=== PATIENT | female | born 1945 | race Caucasian/White ===

== ENCOUNTER 2017-10-12 11:47 | Emergency (ER) | payer MEDICARE, BC ==
--- NOTE | 2017-10-12 13:15 | XR ---
PA chest x-ray with left RIBS HISTORY: Trauma and pain Frontal view of the chest and 2 views of the left ribs submitted. No comparisons There is no pneumothorax or pleural effusion. No evident displaced rib fracture. Cardiomediastinal si lhouette, pulmonary vascularity and bubba within normal limits. The lungs are well aerated. There is e ventration of the right hemidiaphragm. Decreased bone mineralization may limit the exam. IMPRESSION: No acute abnormality. Bone scan could be performed for increased sensitivity to assess fo r occult fracture as indicated.
--- NOTE | 2017-10-12 13:24 | ED ---
General Adult HPI - General Chief complaint: Fall Stated complaint: Fall Time Seen by Provider: 10/12/17 12:43 Source: patient, RN notes reviewed Mode of arrival: ambulatory Limitations: no limitations - History of Present Illness Initial comments: 71-year-old female presents to the emergency department with a chief complaint of left-sided rib pain. Patient gives the house she slipped on ice habits she hit the left side of her ribs on the ground. She states she is obtaining left- sided ribs. She said big deep breaths she will sometimes get pain there as well. She states there is no shortness of breath. No abdominal pain. No nausea vomiting. She denied her head with the fall. There is no lightheadedness or dizziness prior to the fall. They were concerned due to the continued pain in the ribs so she thought that she should be seen.Patient denies any recent fever, chills, shortness of breath, chest pain, back pain, abdominal pain, nausea vomiting, numbness or tingling, dysuria or hematuria, constipation or diarrhea, headaches or visual changes, or any other current symptoms. - Related Data Home Medications Medication Instructions Recorded Confirmed Aspirin 81 mg PO DAILY 10/12/17 10/12/17 Atorvastatin [Lipitor] 80 mg PO HS 10/12/17 10/12/17 Levothyroxine Sodium [Synthroid] 100 mcg PO DAILY 10/12/17 10/12/17 Lisinopril [Zestril] 5 mg PO HS 10/12/17 10/12/17 Allergies Allergy/AdvReac Type Severity Reaction Status Date / Time No Known Allergies Allergy Verified 10/12/17 12:31 Review of Systems ROS Statement: Those systems with pertinent positive or pertinent negative responses have been documented in the HPI. ROS Other: All systems not noted in ROS Statement are negative. Past Medical History Past Medical History: Hyperlipidemia, Hypertension, Thyroid Disorder History of Any Multi-Drug Resistant Organisms: None Reported Past Surgical History: Hysterectomy Past Psychological History: No Psychological Hx Reported Smoking Status: Never smoker Past Alcohol Use History: Occasional Past Drug Use History: None Reported General Exam Limitations: no limitations General appearance: alert, in no apparent distress Eye exam: Present: normal appearance, PERRL, EOMI. Absent: scleral icterus, conjunctival injection, periorbital swelling ENT exam: Present: normal exam, mucous membranes moist Neck exam: Present: normal inspection. Absent: tenderness, meningismus, lymphadenopathy Respiratory exam: Present: normal lung sounds bilaterally, chest wall tenderness (Left lateral along the lower rib cage). Absent: respiratory distress, wheezes, rales, rhonchi, stridor Cardiovascular Exam: Present: regular rate, normal rhythm, normal heart sounds. Absent: systolic murmur, diastolic murmur, rubs, gallop, clicks GI/Abdominal exam: Present: soft, normal bowel sounds. Absent: distended, tenderness, guarding, rebound, rigid Back exam: Present: normal inspection Neurological exam: Present: alert, oriented X3 Psychiatric exam: Present: normal affect, normal mood Skin exam: Present: warm, dry, intact, normal color. Absent: rash Course Vital Signs 10/12/17 12:09 Temperature 99.8 F H Pulse Rate 80 Respiratory 16 Rate Blood Pressure 175/74 O2 Sat by Pulse 98 Oximetry Medical Decision Making - Medical Decision Making 71-year-old female presents for treatment. This time x-rays reviewed that essentially acute fracture. This time we discussed most likely left rib contusion. We discussed ice Motrin Tylenol for pain. We discussed return parameters and follow-up and all questions. Patient and family stated the [facility] management plan. They'll be discharged home. - Radiology Data Radiology results: report reviewed, image reviewed Disposition Clinical Impression: Fall, Contusion of rib on left side Disposition: HOME SELF-CARE Condition: Stable Instructions: Rib Contusion (ED) Additional Instructions: Please use medication as discussed. Please follow up with family doctor if symptoms have not improved over the next two days. Please return to the emergency room if your symptoms increase or worsen or for any other concerns. Referrals: Alec Castillo MD [Primary Care Provider] - 1-2 days Time of Disposition: 13:24
[2017-10-12 13:35] VITALS: BP 138/74; PULSE 82; RESP 20; TEMP 98.4
== END 2017-10-12 13:32 | disposition home or self-care (01) ==
LOC: EC 11:47
DX: S20.212A Contusion of left front wall of thorax, initial encounter (principal); E78.5 Hyperlipidemia, unspecified; I10 Essential (primary) hypertension; E07.9 Disorder of thyroid, unspecified; Z79.82 Long term (current) use of aspirin; Z79.899 Other long term (current) drug therapy; W00.0XXA Fall on same level due to ice and snow, initial encounter; Y92.009 Unspecified place in unspecified non-institutional (private) residence as the place of occurrence of the external cause
CPT/HCPCS: 99283

== ENCOUNTER → 2019-12-03 | Outpatient (CLI) | payer MEDICARE, BC ==
--- NOTE | 2019-12-03 11:58 | MM ---
Reason for exam: screening (asymptomatic). Last mammogram was performed 3 years and 3 months ago. History: Patient is postmenopausal. Family history of breast cancer in maternal grandmother at age 70. Took hormonal contraceptives for 1 year 6 months. Took estrogen for 2 years beginning at age 51. Physical Findings: Nurse did not find any significant physical abnormalities on exam. MG Screening Mammo w CAD Bilateral CC and MLO view(s) were taken. Prior study comparison: September 07, 2016, bilateral MG diagnostic mammo w CAD [facility]. August 18, 2015, left breast MG 3d work up w/cad LT. There are scattered fibroglandular densities. There is a stable right upper outer quadrant 4mm mass back to 2015. No suspicious abnormality. No significant changes when compared with prior studies. ASSESSMENT: Benign, BI-RAD 2 RECOMMENDATION: Routine screening mammogram of both breasts in 1 year.
== END | disposition home or self-care (01) ==
LOC: RADMAMWWP 09:54
PROVIDERS: ATTEND Family Medicine
DX: Z12.31 Encounter for screening mammogram for malignant neoplasm of breast (principal)
CPT/HCPCS: 77067

== ENCOUNTER → 2022-12-27 | Outpatient (CLI) | payer MEDICARE ==
--- NOTE | 2022-12-28 08:37 | MM ---
Reason for Exam: Screening (asymptomatic). Last mammogram was performed 3 year(s) and 1 month(s) ago. Patient History: Menarche at age 13. First Full-Term at age 24. Left ovary removed at age 51. Right ovary removed at age 51. Hysterectomy at age 51. Postmenopausal. Estrogen, starting at age 51 for 2 years. Hormonal Contraceptives for 1 year, 6 months. Maternal grandmother had breast cancer, age 70. Risk Values: Jocelynn 5 year model risk: 1.6%. NCI Lifetime model risk: 3.2%. Prior Study Comparison: 08/18/2015 Left Diagnostic Mammogram, [facility]. 09/07/2016 Bilateral Diagnostic Mammogram, [facility]. 12/03/2019 Bilateral Screening Mammogram, [facility]. Tissue Density: The breast tissue is heterogeneously dense. This may lower the sensitivity of mammography. Findings: Analyzed By CAD. There is no suspicious group of microcalcifications or new suspicious mass in either breast. Overall Assessment: Benign, BI-RAD 2 Management: Screening Mammogram of both breasts in 1 year. A clinical breast exam by your physician is recommended on an annual basis and results should be correlated with mammographic findings. Electronically signed and approved by: Harlan Toro M.D. Radiologis
== END | disposition home or self-care (01) ==
LOC: RADMAMWWP 09:30
PROVIDERS: ATTEND Family Medicine
DX: Z12.31 Encounter for screening mammogram for malignant neoplasm of breast (principal); Z78.0 Asymptomatic menopausal state; Z80.3 Family history of malignant neoplasm of breast
CPT/HCPCS: 77063; 77067

== ENCOUNTER → 2024-12-04 | Outpatient (CLI) | payer MEDICARE ==
--- NOTE | 2024-12-05 09:55 | MM ---
Reason for Exam: Screening (asymptomatic). Last mammogram was performed 1 year(s) and 11 month(s) ago. Patient History: Menarche at age 13. First Full-Term at age 24. Left ovary removed at age 51. Right ovary removed at age 51. Hysterectomy at age 51. Postmenopausal. Estrogen, starting at age 51 for 2 years. Hormonal Contraceptives for 1 year, 6 months. Maternal grandmother had breast cancer, age 70. Risk Values: Jocelynn 5 year model risk: 1.5%. NCI Lifetime model risk: 2.8%. Prior Study Comparison: 09/07/2016 Bilateral Diagnostic Mammogram, [facility]. 12/03/2019 Bilateral Screening Mammogram, [facility]. 12/27/2022 Bilateral MG 3D screening mammo w/cad, [facility]. Tissue Density: The breasts are heterogeneously dense, which may obscure small masses. Findings: Analyzed By CAD. There is no suspicious group of microcalcifications or new suspicious mass in either breast. Overall Assessment: Benign, BI-RAD 2 Management: Screening Mammogram of both breasts in 1 year. . Patient should continue monthly self-breast exams. A clinical breast exam by your physician is recommended on an annual basis. This exam should not preclude additional follow-up of suspicious palpable abnormalities. Note on Jocelynn scores and lifetime risk: 1. A Jocelynn score greater than 3% is considered moderate risk. If this is the case, consider specialist referral to assess eligibility for a risk reducing agent. 2. If overall lifetime risk for the development of breast cancer is 20% or higher, the patient may qualify for future screening with alternating mammogram and breast MRI. [facility], , 12/05/2024 9:52 AM. Electronically signed and approved by: Harlan Toro M.D. Radiologis
== END | disposition home or self-care (01) ==
LOC: RADMAMWWP 14:14
PROVIDERS: ATTEND Family Medicine
DX: Z12.31 Encounter for screening mammogram for malignant neoplasm of breast (principal); R92.333 Mammographic heterogeneous density, bilateral breasts; Z78.0 Asymptomatic menopausal state; Z80.3 Family history of malignant neoplasm of breast; Z92.0 Personal history of contraception
CPT/HCPCS: 77063; 77067